=== PATIENT | male | born 1985 | race Caucasian/White ===

== ENCOUNTER 2017-09-11 20:42 | Inpatient (IN) | payer BC ==
[~2017-09-11] VITALS: Ht 167.6 cm; Wt 160.1 kg
[2017-09-11 20:55] VITALS: Ht 167.6 cm; Wt 160.1 kg
[2017-09-11 22:38] LABS: BASOPHIL % 0.3 % (0-2); PLATELET COUNT 210 x10^3mcL (130-400); RED CELL DISTRIBUTION WIDTH 13.6 % (11.5-14.5)
[2017-09-11 22:57] LABS: CALCIUM 8.6 mg/dL (8.5-10.1); CARBON DIOXIDE 27.3 mmol/L (21-32); CHLORIDE SERUM 102 mmol/L (98-107); CREATININE SERUM 0.8 mg/dL (0.7-1.3); GFR1 > 60 mL/min; GLUCOSE SERUM 132 mg/dL (74-106); POTASSIUM SERUM 3.8 mmol/L (3.5-5.1); SODIUM SERUM 139 mmol/L (136-145)
[2017-09-11 23:02] LABS: ALBUMIN 3.5 g/dL (3.4-5.0); ALKALINE PHOSPHATASE 97 U/L (46-116); ALT/SGPT 62 U/L (16-63); AST/SGOT 26 U/L (15-37); TOTAL PROTEIN, SERUM 8.2 g/dL (6.4-8.2)
[2017-09-11] MEDS ORDERED: METFORMIN HCL500 MG (23:26)
[2017-09-12 02:23] LABS: microscopic required? NO
[2017-09-12 02:34] LABS: urine erythrocyte NEGATIVE (NEGATIVE)
[2017-09-12 02:43] LABS: AMPHETAMINE QUAL UR NONE DETECTED (NEG <=1000)
[2017-09-12 02:57] VITALS: BP 150/78
[2017-09-12 04:21] LABS: CHOLESTEROL/HDL RATIO 4.5; MAGNESIUM 2.2 mg/dL (1.8-2.4); PHOSPHOROUS 2.5 mg/dL (2.5-4.9)
[2017-09-12 04:28] LABS: T3 TOTAL 1.06 ng/mL
[2017-09-12 04:35] LABS: FREE T4 1.15 ng/dL (0.76-1.46); FREE THYROXINE INDEX 2.7 ug/dL (1.4-4.5); T4(THYROXINE) 7.4 ug/dL (4.7-13.3)
[2017-09-12 05:47] VITALS: BP 123/65
[2017-09-12 07:51] LABS: BASOPHIL % 0.4 % (0-2); PLATELET COUNT 175 x10^3mcL (130-400); RED CELL DISTRIBUTION WIDTH 13.8 % (11.5-14.5)
[2017-09-12 08:01] LABS: CALCIUM 8.1 mg/dL (8.5-10.1); CARBON DIOXIDE 27.7 mmol/L (21-32); CHLORIDE SERUM 104 mmol/L (98-107); CREATININE SERUM 0.7 mg/dL (0.7-1.3); GFR1 > 60 mL/min; GLUCOSE SERUM 113 mg/dL (74-106); POTASSIUM SERUM 3.6 mmol/L (3.5-5.1); SODIUM SERUM 140 mmol/L (136-145)
[2017-09-12 08:56] VITALS: BP 143/82
[2017-09-12 13:32] VITALS: BP 119/57
[2017-09-12] MEDS ORDERED: ECO81 PO (16:40)
[2017-09-12 16:49] VITALS: BP 119/57
== END 2017-09-12 17:34 | disposition home or self-care (01) | DRG 206 ==
LOC: ED 20:42 → DU 09-12 01:20
PROVIDERS: Emergency Medicine; Family Medicine
DX: M94.0 Chondrocostal junction syndrome [Tietze] (principal); Z68.41 Body mass index [BMI] 40.0-44.9, adult; E11.65 Type 2 diabetes mellitus with hyperglycemia; G47.33 Obstructive sleep apnea (adult) (pediatric); G90.8 Other disorders of autonomic nervous system; E78.5 Hyperlipidemia, unspecified; E66.01 Morbid (severe) obesity due to excess calories; Z90.89 Acquired absence of other organs
CPT/HCPCS: 83880; 84439; J1644; J1885; J7030; Q0092